=== PATIENT | female | born 1960 | race African-American/Black ===

== ENCOUNTER 2018-08-19 02:33 | Emergency (ER) | payer MEDICAID ==
[~2018-08-19] VITALS: Ht 180.3 cm; Wt 91.0 kg
[~2018-08-19 02:33] MED LIST: IBUP-2028 PO; RISP2TAB22 PO; SERT50TA PO
[2018-08-19] MEDS ORDERED: IBUPROFEN 600MG TABLET PO ONE (04:15)
[2018-08-19 06:35] VITALS: BP 166/85
== END 2018-08-19 06:38 | disposition home or self-care (01) ==
LOC: ER 02:49
DX: M54.31 Sciatica, right side (principal); M25.551 Pain in right hip; Z86.73 Personal history of transient ischemic attack (TIA), and cerebral infarction without residual deficits
CPT/HCPCS: 73502; 99283

== ENCOUNTER 2021-04-17 14:01 | Emergency (ER) | payer MEDICAID ==
[~2021-04-17] VITALS: Ht 170.2 cm; Wt 73.0 kg
[~2021-04-17 14:01] MED LIST changes: -RISP2TAB22 PO; +RISP2TAB85 PO
[2021-04-17] MEDS ORDERED: ACETAMINOPHEN 325MG TABLET PO ONE (15:15)
[2021-04-17] MEDS ORDERED: BACITRACIN ZINC OINT UDPKT TOP ONE (16:00)
[2021-04-17] MEDS ORDERED: TETANUS, DIPHTHERIA, PERTUSSIS VAC/PF 0.5ML (>7YR OLD) IM ONE (16:15)
[2021-04-17] MEDS ORDERED: CEPH500C2 MT (16:54)
[2021-04-17] MEDS ORDERED: IBUP-2028 PO (16:54)
[2021-04-17 17:28] VITALS: BP 140/80
[2021-04-17] MEDS ORDERED: KETOROLAC 30MG/ML VIAL IM ONE (17:30)
== END 2021-04-17 17:32 | disposition home or self-care (01) ==
LOC: ER 14:01
DX: M79.671 Pain in right foot (principal); R07.81 Pleurodynia
CPT/HCPCS: 71045; 73630; 90471; 90715; 96372; 99284; J1885; Z7610

== ENCOUNTER 2021-07-13 11:00 | Emergency (ER) | payer MEDICAID ==
[~2021-07-13] VITALS: Ht 167.6 cm; Wt 70.0 kg
[~2021-07-13 11:00] MED LIST changes: +CEPH500C2 MT
[2021-07-13 11:12] VITALS: BP 130/88
[2021-07-13] MEDS ORDERED: FLUORESCEIN SODIUM 1MG/STRIP LEFTEYE ONE (11:45)
[2021-07-13] MEDS ORDERED: TETRACAINE 0.5% OPHTH DROPS 4ML LEFTEYE ONE (11:45)
== END 2021-07-13 12:20 | disposition left against medical advice (07) ==
LOC: ER 12:15
DX: M17.12 Unilateral primary osteoarthritis, left knee (principal); H10.9 Unspecified conjunctivitis; F31.9 Bipolar disorder, unspecified; Z86.73 Personal history of transient ischemic attack (TIA), and cerebral infarction without residual deficits
CPT/HCPCS: 73560; 99283